=== PATIENT | male | born 1970 | race Two or more races ===

== ENCOUNTER 2022-05-12 15:38 | Emergency (ER) | payer OTHER ==
[2022-05-12 15:49] VITALS: PULSE 78; RESP 18; TEMP 98.6; BMI 27.2
[2022-05-12] MEDS ORDERED: ACETAMINOPHEN 500 MG TABLET (FP) PO ONE (16:31)
[2022-05-12] MEDS ORDERED: ACETAMINOPHEN 325 MG TABLET (FP) ONE (16:38)
[2022-05-12 17:11] VITALS: BP 162/112
[2022-05-12 17:42] LABS: EOS % 1.7 % (0-4.5); HEMATOCRIT 46.2 % (35.4-49); HEMOGLOBIN 15.6 GM/dL (11.7-16.9); LYMPH % 17.4 % (8-40); MCH 29.9 pg (25.7-33.7); MCHC 33.7 g/dl (32.0-35.9); MEAN CELL VOLUME 88.8 fl (80-96); MEAN PLT VOLUME 7.7 fl (7.5-11.1); MONO % 6.8 % (3.8-10.2); NEUT % 73.1 % (42.8-82.8); PLATELET COUNT 364 10^3/uL (134-434); WHITE BLOOD COUNT 10.3 K/mm3 (4.0-10.0)
[2022-05-12 18:05] LABS: ALBUMIN 4.3 g/dl (3.4-5.0); BLOOD UREA NITROGEN 9.7 mg/dL (7-18); CALCIUM 9.3 mg/dL (8.5-10.1); MAGNESIUM 2.3 mg/dL (1.8-2.4)
[2022-05-12 18:08] LABS: CREATININE 1.2 mg/dL (0.55-1.3)
[2022-05-12 18:10] LABS: BILIRUBIN,TOTAL 0.7 mg/dL (0.2-1)
== END 2022-05-12 18:48 | disposition home or self-care (01) ==
LOC: JER 15:38
DX: I10 Essential (primary) hypertension (principal)
CPT/HCPCS: 36415; 80053; 83690; 83735; 84484; 85025; 93005; 93010; 99284-25